=== PATIENT | male | born 1960 | race Caucasian/White ===

== ENCOUNTER 2017-06-01 11:44 | Emergency (ER) | payer OTHER | END 2017-06-01 14:41 | disposition home or self-care (01) | LOC: E/R 11:44 | DX: B35.1 Tinea unguium (principal) | CPT/HCPCS: 99284 ==

== ENCOUNTER 2017-06-19 11:36 | Emergency (ER) | payer OTHER ==
[2017-06-19 17:28] LABS: ADD MAN DIFF? NO
[2017-06-19 17:31] LABS: WHITE BLOOD COUNT 8.1 10^3/ul (4.8-10.8)
[2017-06-19 17:31] LABS: BASOPHILS % 0.5 % (0.0-2.0); EOSINOPHILS # 0.4 10^3/ul (0.0-0.5); EOSINOPHILS % 4.6 % (0.0-7.0); HEMOGLOBIN 14.6 g/dl (14.0-18.0); LYMPHOCYTES % 24.4 % (15.0-51.0); MEAN CORPUSCULAR HEMOGLOBIN 30.2 pg (29.0-33.0); MEAN CORPUSCULAR HGB CONC 34.8 g/dl (32.0-37.0); MEAN PLATELET VOLUME 8.8 fl (7.4-10.4); MONOCYTE # 0.7 10^3/ul (0.3-0.9); NEUTROPHILS % 61.3 % (39.0-77.0); PLATELET COUNT 295 10^3/UL (140-415); RED BLOOD COUNT 4.83 10^6/ul (4.70-6.10); RED CELL DISTRIBUTION WIDTH 12.4 % (11.5-14.5)
[2017-06-19 17:33] LABS: ADD UMIC YES; UR ASCORBIC ACID NEGATIVE (NEGATIVE); UR BILIRUBIN (Dip) NEGATIVE (NEGATIVE); UR BLOOD (Dip) 1+ mg/dL (NEGATIVE); UR CLARITY CLEAR (CLEAR); UR COLOR COLORLESS (YELLOW); UR GLUCOSE (Dip) NEGATIVE (NEGATIVE); UR KETONES (Dip) NEGATIVE (NEGATIVE); UR LEUKOCYTE ESTERASE (Dip) NEGATIVE Leu/ul (NEGATIVE); UR NITRITE (Dip) NEGATIVE (NEGATIVE); UR RBC 0 /HPF (0-5); UR SPECIFIC GRAVITY (Dip) 1.001 (1.003-1.030); UR TOTAL PROTEIN (Dip) NEGATIVE (NEGATIVE); UR UROBILINOGEN (Dip) NEGATIVE (NEGATIVE); UR WBC 0 /HPF (0-5)
[2017-06-19] MEDS: SOD CHLORIDE 0.9% 1,000 ML IV (17:37)
[2017-06-19] MEDS: morphine 4 MG/ML VIAL IV (17:37)
[2017-06-19 17:50] LABS: ALANINE AMINOTRANSFERASE 43 IU/L (13-69); ALBUMIN 4.3 g/dl (3.3-4.9); ALBUMIN/GLOBULIN RATIO 1.48; ALKALINE PHOSPHATASE 78 IU/L (42-121); ANION GAP 10 (8-16); ASPARTATE AMINO TRANSFERASE 30 IU/L (15-46); BLOOD UREA NITROGEN 9 mg/dl (7-20); CALCIUM 9.1 mg/dl (8.4-10.2); CARBON DIOXIDE 27 mmol/L (21-31); CHLORIDE 100 mmol/L (97-110); CREATININE 0.85 mg/dl (0.61-1.24); GLUCOSE 110 mg/dl (70-220); LIPASE 68 U/L (23-300); POTASSIUM 4.2 mmol/L (3.5-5.1); SODIUM 133 mmol/L (135-144); TOTAL PROTEIN 7.2 g/dl (6.1-8.1)
[2017-06-19] MEDS: ONDANSETRON 4 MG INJ IV (20:00)
[2017-06-19] MEDS: KETOROLAC 30 MG INJ IV (20:00)
== END 2017-06-19 21:05 | disposition home or self-care (01) ==
LOC: E/R 11:36
DX: R10.84 Generalized abdominal pain (principal); R40.2142 Coma scale, eyes open, spontaneous, at arrival to emergency department; R40.2252 Coma scale, best verbal response, oriented, at arrival to emergency department; R40.2362 Coma scale, best motor response, obeys commands, at arrival to emergency department
CPT/HCPCS: 74176; 80053; 81001; 83690; 85025; 96374; 96375; 99285-25

== ENCOUNTER 2017-07-04 10:10 | Emergency (ER) | payer OTHER ==
[2017-07-04] MEDS: IBUPROFEN 600 MG TAB PO (12:17)
== END 2017-07-04 12:36 | disposition home or self-care (01) ==
LOC: FTE 10:10
DX: M79.671 Pain in right foot (principal)
CPT/HCPCS: 73630; 99283-25

== ENCOUNTER 2017-07-13 10:56 | Emergency (ER) | payer OTHER | END 2017-07-13 12:57 | disposition home or self-care (01) | LOC: FTE 10:56 | DX: B35.6 Tinea cruris (principal); F17.210 Nicotine dependence, cigarettes, uncomplicated | CPT/HCPCS: 99283 ==

== ENCOUNTER 2017-07-22 11:16 | Emergency (ER) | payer OTHER ==
[2017-07-22] MEDS: HYDROCODONE/APAP (5/325) TAB PO (11:42)
[2017-07-22 11:50] LABS: ADD MAN DIFF? NO
[2017-07-22 11:51] LABS: BASOPHILS % 0.3 % (0.0-2.0); EOSINOPHILS # 0.1 10^3/ul (0.0-0.5); EOSINOPHILS % 0.9 % (0.0-7.0); HEMATOCRIT 42.1 % (42.0-52.0); HEMOGLOBIN 15.4 g/dl (14.0-18.0); LYMPHOCYTES # 1.2 10^3/ul (0.8-2.9); MEAN CORPUSCULAR HEMOGLOBIN 30.6 pg (29.0-33.0); MEAN CORPUSCULAR HGB CONC 36.6 g/dl (32.0-37.0); MEAN CORPUSCULAR VOLUME 83.7 fl (82.0-101.0); MEAN PLATELET VOLUME 8.6 fl (7.4-10.4); MONOCYTE # 0.8 10^3/ul (0.3-0.9); MONOCYTES % 6.8 % (0.0-11.0); NEUTROPHIL # 9.4 10^3/ul (1.6-7.5); NEUTROPHILS % 81.7 % (39.0-77.0); PLATELET COUNT 298 10^3/UL (140-415); RED BLOOD COUNT 5.03 10^6/ul (4.70-6.10); RED CELL DISTRIBUTION WIDTH 12.1 % (11.5-14.5)
[2017-07-22 11:51] LABS: WHITE BLOOD COUNT 11.5 10^3/ul (4.8-10.8)
[2017-07-22 12:20] LABS: ALANINE AMINOTRANSFERASE 33 IU/L (13-69); ALBUMIN 4.3 g/dl (3.3-4.9); ALBUMIN/GLOBULIN RATIO 1.53; ALKALINE PHOSPHATASE 64 IU/L (42-121); ANION GAP 17 (8-16); ASPARTATE AMINO TRANSFERASE 25 IU/L (15-46); BILIRUBIN,INDIRECT 0.2 mg/dl (0-1.1); BILIRUBIN,TOTAL 0.2 mg/dl (0.2-1.3); BLOOD UREA NITROGEN 13 mg/dl (7-20); CARBON DIOXIDE 22 mmol/L (21-31); CHLORIDE 95 mmol/L (97-110); CREATININE 0.86 mg/dl (0.61-1.24); GLUCOSE 103 mg/dl (70-220); POTASSIUM 4.4 mmol/L (3.5-5.1); SODIUM 130 mmol/L (135-144); TOTAL PROTEIN 7.1 g/dl (6.1-8.1)
[2017-07-22 12:27] LABS: B-TYPE NATRIURETIC PEPTIDE 51 PG/ML (0-125)
== END 2017-07-22 13:03 | disposition home or self-care (01) ==
LOC: FTE 11:16
DX: M79.605 Pain in left leg (principal); F17.210 Nicotine dependence, cigarettes, uncomplicated; R60.0 Localized edema
CPT/HCPCS: 71045; 80053; 83880; 85025; 93971; 99285-25

== ENCOUNTER 2017-07-29 03:50 | Inpatient (IN) | payer OTHER ==
[2017-07-29] MEDS ORDERED: ONDANSETRON 4 MG INJ IV (08:30)
[2017-07-29] MEDS ORDERED: ACETAMINOPHEN 325 MG TAB PO (08:30)
[2017-07-29] MEDS ORDERED: DOCUSATE SODIUM 100 MG CAP PO (08:30)
[2017-07-29] MEDS ORDERED: BISACODYL (EC) 5 MG TAB PO (08:30)
[2017-07-29] MEDS ORDERED: NACL 0.9% 3 ML SYG IV (08:30)
[2017-07-29] MEDS: SOD CHLORIDE 0.9% 1,000 ML IV ×2 (10:35→20:33)
[2017-07-29 11:23] LABS: ADD UMIC YES; UR ASCORBIC ACID NEGATIVE (NEGATIVE); UR BILIRUBIN (Dip) NEGATIVE (NEGATIVE); UR BLOOD (Dip) 1+ mg/dL (NEGATIVE); UR CLARITY CLEAR (CLEAR); UR COLOR COLORLESS (YELLOW); UR GLUCOSE (Dip) NEGATIVE (NEGATIVE); UR KETONES (Dip) NEGATIVE (NEGATIVE); UR LEUKOCYTE ESTERASE (Dip) NEGATIVE Leu/ul (NEGATIVE); UR NITRITE (Dip) NEGATIVE (NEGATIVE); UR RBC 0 /HPF (0-5); UR SPECIFIC GRAVITY (Dip) 1.002 (1.003-1.030); UR TOTAL PROTEIN (Dip) NEGATIVE (NEGATIVE); UR UROBILINOGEN (Dip) NEGATIVE (NEGATIVE); UR WBC 0 /HPF (0-5)
[2017-07-29 11:37] LABS: ADD MAN DIFF? NO
[2017-07-29 11:38] LABS: CREATININE,URINE RANDOM 14.19 mg/dl (20-370)
[2017-07-29 11:41] LABS: BASOPHILS % 0.3 % (0.0-2.0); EOSINOPHILS # 0.2 10^3/ul (0.0-0.5); EOSINOPHILS % 2.7 % (0.0-7.0); HEMATOCRIT 41.9 % (42.0-52.0); HEMOGLOBIN 14.9 g/dl (14.0-18.0); LYMPHOCYTES # 1.1 10^3/ul (0.8-2.9); LYMPHOCYTES % 17.2 % (15.0-51.0); MEAN CORPUSCULAR HEMOGLOBIN 30.2 pg (29.0-33.0); MEAN CORPUSCULAR HGB CONC 35.6 g/dl (32.0-37.0); MEAN CORPUSCULAR VOLUME 84.8 fl (82.0-101.0); MEAN PLATELET VOLUME 8.9 fl (7.4-10.4); MONOCYTE # 0.7 10^3/ul (0.3-0.9); MONOCYTES % 11.4 % (0.0-11.0); NEUTROPHIL # 4.4 10^3/ul (1.6-7.5); NEUTROPHILS % 68.1 % (39.0-77.0); PLATELET COUNT 315 10^3/UL (140-415); RED BLOOD COUNT 4.94 10^6/ul (4.70-6.10); RED CELL DISTRIBUTION WIDTH 12.7 % (11.5-14.5)
[2017-07-29 11:41] LABS: WHITE BLOOD COUNT 6.4 10^3/ul (4.8-10.8)
[2017-07-29 11:55] LABS: HEMOGLOBIN A1C 5.4 % (0-5.9)
[2017-07-29 12:03] LABS: ALANINE AMINOTRANSFERASE 31 IU/L (13-69); ALBUMIN 4.5 g/dl (3.3-4.9); ALKALINE PHOSPHATASE 56 IU/L (42-121); ANION GAP 16 (8-16); ASPARTATE AMINO TRANSFERASE 34 IU/L (15-46); BILIRUBIN,INDIRECT 0.4 mg/dl (0-1.1); BILIRUBIN,TOTAL 0.4 mg/dl (0.2-1.3); BLOOD UREA NITROGEN 7 mg/dl (7-20); CALCIUM 9.2 mg/dl (8.4-10.2); CARBON DIOXIDE 24 mmol/L (21-31); CHLORIDE 101 mmol/L (97-110); CREATININE 0.77 mg/dl (0.61-1.24); GLUCOSE 93 mg/dl (70-220); POTASSIUM 4.3 mmol/L (3.5-5.1); SODIUM 137 mmol/L (135-144); TOTAL PROTEIN 7.3 g/dl (6.1-8.1)
[2017-07-29 12:04] LABS: CHOLESTEROL 196 mg/dl (100-200); OSMOLALITY 271 mOsm/kg (280-295)
[2017-07-29 12:04] LABS: URIC ACID 3.5 mg/dl (3.1-7.9)
[2017-07-29 12:04] LABS: CHOL/HDL RATIO 4.7 RATIO; HDL CHOLESTEROL 41 mg/dl (28-71); LDL CHOLESTEROL,CALCULATED 130 mg/dl; TRIGLYCERIDES 123 mg/dl (0-149)
[2017-07-29 12:09] LABS: SODIUM,URINE RANDOM 28 mmol/L (30-90)
[2017-07-29 15:30] LABS: OSMOLALITY,URINE 104 mOsm/kg (250-1200)
[2017-07-29 16:11] LABS: OCCULT BLOOD STOOL NEGATIVE (NEGATIVE)
[2017-07-30 06:15] LABS: ADD MAN DIFF? NO
[2017-07-30 06:19] LABS: BASOPHILS % 0.5 % (0.0-2.0); EOSINOPHILS # 0.2 10^3/ul (0.0-0.5); EOSINOPHILS % 3.9 % (0.0-7.0); HEMATOCRIT 43.1 % (42.0-52.0); HEMOGLOBIN 15.4 g/dl (14.0-18.0); LYMPHOCYTES # 1.6 10^3/ul (0.8-2.9); LYMPHOCYTES % 27.8 % (15.0-51.0); MEAN CORPUSCULAR HEMOGLOBIN 30.2 pg (29.0-33.0); MEAN CORPUSCULAR HGB CONC 35.7 g/dl (32.0-37.0); MEAN CORPUSCULAR VOLUME 84.5 fl (82.0-101.0); MEAN PLATELET VOLUME 8.9 fl (7.4-10.4); MONOCYTE # 0.6 10^3/ul (0.3-0.9); MONOCYTES % 10.2 % (0.0-11.0); NEUTROPHIL # 3.3 10^3/ul (1.6-7.5); NEUTROPHILS % 57.2 % (39.0-77.0); PLATELET COUNT 308 10^3/UL (140-415); RED CELL DISTRIBUTION WIDTH 12.6 % (11.5-14.5)
[2017-07-30 06:19] LABS: WHITE BLOOD COUNT 5.7 10^3/ul (4.8-10.8)
[2017-07-30 06:44] LABS: ALANINE AMINOTRANSFERASE 36 IU/L (13-69); ALBUMIN 4.2 g/dl (3.3-4.9); ALBUMIN/GLOBULIN RATIO 1.31; ALKALINE PHOSPHATASE 58 IU/L (42-121); ANION GAP 16 (8-16); ASPARTATE AMINO TRANSFERASE 26 IU/L (15-46); BILIRUBIN,INDIRECT 0.4 mg/dl (0-1.1); BILIRUBIN,TOTAL 0.4 mg/dl (0.2-1.3); BLOOD UREA NITROGEN 8 mg/dl (7-20); CALCIUM 9.1 mg/dl (8.4-10.2); CARBON DIOXIDE 22 mmol/L (21-31); CHLORIDE 103 mmol/L (97-110); CREATININE 0.81 mg/dl (0.61-1.24); GLUCOSE 87 mg/dl (70-220); POTASSIUM 4.4 mmol/L (3.5-5.1); SODIUM 137 mmol/L (135-144); TOTAL PROTEIN 7.4 g/dl (6.1-8.1)
[2017-07-30 06:45] LABS: PHOSPHORUS 3.5 mg/dl (2.5-4.9)
[2017-07-30] MEDS: SOD CHLORIDE 0.9% 1,000 ML IV (09:03)
[2017-07-30 14:24] LABS: CREATININE, RANDOM URINE 14 mg/dL (20-370); MICROALBUMIN <0.2 mg/dL; MICROALBUMIN/CREATININE RATIO NOTE (<30)
[2017-07-31] MEDS ORDERED: INFLUENZA VIRUS VACCINE 0.5 ML (DISPENSING) IM* (09:00)
== END 2017-07-30 13:10 | disposition home or self-care (01) | DRG 392 ==
LOC: MS2 03:50
PROVIDERS: Family Medicine
DX: A08.4 Viral intestinal infection, unspecified (principal); K92.0 Hematemesis; E87.1 Hypo-osmolality and hyponatremia; F17.210 Nicotine dependence, cigarettes, uncomplicated
CPT/HCPCS: 71046; 74018; 80053; 80061; 81001; 81003; 82043; 82270; 82533; 83036; 83735; 83930; 83935; 84100; 84155; 84300; 84443; 84560; 85025; 86674; 87045; 87075; 87177; 87205

== ENCOUNTER 2017-08-15 11:27 | Emergency (ER) | payer OTHER ==
[2017-08-15 12:38] LABS: ADD UMIC YES; UR ASCORBIC ACID NEGATIVE (NEGATIVE); UR BILIRUBIN (Dip) NEGATIVE (NEGATIVE); UR BLOOD (Dip) 1+ mg/dL (NEGATIVE); UR CLARITY CLEAR (CLEAR); UR COLOR COLORLESS (YELLOW); UR GLUCOSE (Dip) NEGATIVE (NEGATIVE); UR KETONES (Dip) NEGATIVE (NEGATIVE); UR LEUKOCYTE ESTERASE (Dip) NEGATIVE Leu/ul (NEGATIVE); UR NITRITE (Dip) NEGATIVE (NEGATIVE); UR RBC 0 /HPF (0-5); UR SPECIFIC GRAVITY (Dip) 1.001 (1.003-1.030); UR TOTAL PROTEIN (Dip) NEGATIVE (NEGATIVE); UR UROBILINOGEN (Dip) NEGATIVE (NEGATIVE); UR WBC 0 /HPF (0-5)
[2017-08-15] MEDS: SOD CHLORIDE 0.9% 1,000 ML IV ×2 (12:45→14:19)
[2017-08-15] MEDS: ONDANSETRON 4 MG INJ IV (12:45)
[2017-08-15] MEDS: LORAZEPAM 2 MG INJ IV (12:45)
[2017-08-15] MEDS: morphine 4 MG/ML VIAL IV (12:46)
[2017-08-15 13:03] LABS: ADD MAN DIFF? NO
[2017-08-15 13:06] LABS: BASOPHILS % 0.2 % (0.0-2.0); EOSINOPHILS # 0.1 10^3/ul (0.0-0.5); EOSINOPHILS % 1.2 % (0.0-7.0); HEMATOCRIT 41.1 % (42.0-52.0); HEMOGLOBIN 14.6 g/dl (14.0-18.0); LYMPHOCYTES % 10.9 % (15.0-51.0); MEAN CORPUSCULAR HEMOGLOBIN 29.6 pg (29.0-33.0); MEAN CORPUSCULAR HGB CONC 35.5 g/dl (32.0-37.0); MEAN CORPUSCULAR VOLUME 83.4 fl (82.0-101.0); MEAN PLATELET VOLUME 8.8 fl (7.4-10.4); MONOCYTE # 0.7 10^3/ul (0.3-0.9); MONOCYTES % 7.4 % (0.0-11.0); NEUTROPHIL # 7.2 10^3/ul (1.6-7.5); NEUTROPHILS % 80.1 % (39.0-77.0); PLATELET COUNT 297 10^3/UL (140-415); RED BLOOD COUNT 4.93 10^6/ul (4.70-6.10); RED CELL DISTRIBUTION WIDTH 12.5 % (11.5-14.5)
[2017-08-15 13:25] LABS: LACTIC ACID 0.9 mmol/L (0.5-2.0)
[2017-08-15 13:25] LABS: INR 0.99; PROTIME 13.2 Sec (11.9-14.9)
[2017-08-15 13:26] LABS: PARTIAL THROMBOPLASTIN TIME 29.9 Sec (25.0-35.0)
[2017-08-15 13:27] LABS: ALANINE AMINOTRANSFERASE 31 IU/L (13-69); ALBUMIN 4.4 g/dl (3.3-4.9); ALBUMIN/GLOBULIN RATIO 1.46; ALKALINE PHOSPHATASE 55 IU/L (42-121); AMYLASE 63 U/L (11-123); ANION GAP 17 (8-16); ASPARTATE AMINO TRANSFERASE 22 IU/L (15-46); BILIRUBIN,INDIRECT 0.6 mg/dl (0-1.1); BILIRUBIN,TOTAL 0.6 mg/dl (0.2-1.3); BLOOD UREA NITROGEN 10 mg/dl (7-20); CALCIUM 9.2 mg/dl (8.4-10.2); CARBON DIOXIDE 22 mmol/L (21-31); CHLORIDE 93 mmol/L (97-110); CREATININE 0.78 mg/dl (0.61-1.24); GLUCOSE 105 mg/dl (70-220); LIPASE 57 U/L (23-300); POTASSIUM 4.2 mmol/L (3.5-5.1); SODIUM 128 mmol/L (135-144); TOTAL PROTEIN 7.4 g/dl (6.1-8.1)
[2017-08-15 13:38] LABS: TROPONIN-I < 0.012 ng/ml (0.00-0.12)
== END 2017-08-15 15:37 | disposition home or self-care (01) ==
LOC: E/R 11:27
DX: E87.1 Hypo-osmolality and hyponatremia (principal); F41.9 Anxiety disorder, unspecified; R11.10 Vomiting, unspecified; R19.7 Diarrhea, unspecified
CPT/HCPCS: 36415; 80053; 81001; 82150; 83605; 83690; 84484; 85025; 85610; 85730; 93005; 96374; 96375; 99284-25

== ENCOUNTER 2017-09-07 12:26 | Emergency (ER) | payer OTHER ==
[2017-09-07] MEDS: HYDROCODONE/APAP (5/325) TAB PO (13:40)
== END 2017-09-07 13:43 | disposition home or self-care (01) ==
LOC: FTE 12:26
DX: M54.31 Sciatica, right side (principal)
CPT/HCPCS: 99284

== ENCOUNTER 2017-09-17 12:00 | Emergency (ER) | payer OTHER ==
[2017-09-17 16:44] LABS: ADD MAN DIFF? NO
[2017-09-17 16:46] LABS: WHITE BLOOD COUNT 8.2 10^3/ul (4.8-10.8)
[2017-09-17 16:46] LABS: BASOPHILS % 0.2 % (0.0-2.0); EOSINOPHILS # 0.2 10^3/ul (0.0-0.5); EOSINOPHILS % 2.6 % (0.0-7.0); HEMATOCRIT 42.3 % (42.0-52.0); HEMOGLOBIN 14.7 g/dl (14.0-18.0); LYMPHOCYTES # 1.9 10^3/ul (0.8-2.9); LYMPHOCYTES % 22.6 % (15.0-51.0); MEAN CORPUSCULAR HEMOGLOBIN 30.2 pg (29.0-33.0); MEAN CORPUSCULAR HGB CONC 34.8 g/dl (32.0-37.0); MEAN CORPUSCULAR VOLUME 86.9 fl (82.0-101.0); MEAN PLATELET VOLUME 8.6 fl (7.4-10.4); MONOCYTE # 0.8 10^3/ul (0.3-0.9); MONOCYTES % 9.2 % (0.0-11.0); NEUTROPHIL # 5.3 10^3/ul (1.6-7.5); NEUTROPHILS % 64.8 % (39.0-77.0); PLATELET COUNT 290 10^3/UL (140-415); RED BLOOD COUNT 4.87 10^6/ul (4.70-6.10); RED CELL DISTRIBUTION WIDTH 12.5 % (11.5-14.5)
[2017-09-17 16:48] LABS: ADD UMIC YES; UR ASCORBIC ACID NEGATIVE (NEGATIVE); UR BILIRUBIN (Dip) NEGATIVE (NEGATIVE); UR BLOOD (Dip) 1+ mg/dL (NEGATIVE); UR CLARITY CLEAR (CLEAR); UR COLOR COLORLESS (YELLOW); UR GLUCOSE (Dip) NEGATIVE (NEGATIVE); UR KETONES (Dip) NEGATIVE (NEGATIVE); UR LEUKOCYTE ESTERASE (Dip) NEGATIVE Leu/ul (NEGATIVE); UR NITRITE (Dip) NEGATIVE (NEGATIVE); UR RBC 0 /HPF (0-5); UR SPECIFIC GRAVITY (Dip) 1.001 (1.003-1.030); UR TOTAL PROTEIN (Dip) NEGATIVE (NEGATIVE); UR UROBILINOGEN (Dip) NEGATIVE (NEGATIVE); UR WBC 0 /HPF (0-5)
[2017-09-17 17:08] LABS: ALANINE AMINOTRANSFERASE 23 IU/L (13-69); ALBUMIN 4.2 g/dl (3.3-4.9); ALBUMIN/GLOBULIN RATIO 1.35; ALKALINE PHOSPHATASE 80 IU/L (42-121); ANION GAP 15 (8-16); ASPARTATE AMINO TRANSFERASE 22 IU/L (15-46); BILIRUBIN,INDIRECT 0.2 mg/dl (0-1.1); BILIRUBIN,TOTAL 0.2 mg/dl (0.2-1.3); BLOOD UREA NITROGEN 8 mg/dl (7-20); CALCIUM 9.3 mg/dl (8.4-10.2); CARBON DIOXIDE 25 mmol/L (21-31); CHLORIDE 100 mmol/L (97-110); CREATININE 0.78 mg/dl (0.61-1.24); GLUCOSE 98 mg/dl (70-220); LIPASE 49 U/L (23-300); POTASSIUM 4.2 mmol/L (3.5-5.1); SODIUM 136 mmol/L (135-144); TOTAL PROTEIN 7.3 g/dl (6.1-8.1)
[2017-09-17 17:19] LABS: TROPONIN-I < 0.012 ng/ml (0.00-0.12)
== END 2017-09-17 18:05 | disposition home or self-care (01) ==
LOC: FTE 12:00
DX: R53.83 Other fatigue (principal)
CPT/HCPCS: 36415; 80053; 81001; 83690; 84484; 85025; 93005; 99284-25

== ENCOUNTER 2017-09-29 12:11 | Emergency (ER) | payer OTHER | END 2017-09-29 12:42 | disposition home or self-care (01) | LOC: E/R 12:11 | DX: H61.21 Impacted cerumen, right ear (principal) | CPT/HCPCS: 99283 ==

== ENCOUNTER 2017-10-20 12:01 | Emergency (ER) | payer OTHER | END 2017-10-20 12:50 | disposition home or self-care (01) | LOC: FTE 12:01 | DX: H61.21 Impacted cerumen, right ear (principal); Z87.891 Personal history of nicotine dependence | CPT/HCPCS: 69209; 99283-25 ==

== ENCOUNTER 2018-02-26 11:31 | Emergency (ER) | payer OTHER | END 2018-02-26 13:10 | disposition home or self-care (01) | LOC: FTE 11:31 | DX: B35.6 Tinea cruris (principal) | CPT/HCPCS: 99282 ==

== ENCOUNTER 2018-05-07 11:45 | Emergency (ER) | payer OTHER ==
[2018-05-07] MEDS: ACETAMINOPHEN 500 MG TAB PO (12:36)
[2018-05-07] MEDS: IBUPROFEN 600 MG TAB PO (12:36)
== END 2018-05-07 12:53 | disposition home or self-care (01) ==
LOC: FTE 11:45
DX: S89.91XA Unspecified injury of right lower leg, initial encounter (principal); X58.XXXA Exposure to other specified factors, initial encounter; Y92.322 Soccer field as the place of occurrence of the external cause; Z87.891 Personal history of nicotine dependence
CPT/HCPCS: 99283

== ENCOUNTER 2018-06-07 11:20 | Emergency (ER) | payer OTHER ==
[2018-06-07] MEDS: KETOROLAC 30 MG INJ IM (13:08)
== END 2018-06-07 13:34 | disposition home or self-care (01) ==
LOC: FTE 11:20
DX: M25.562 Pain in left knee (principal); F17.210 Nicotine dependence, cigarettes, uncomplicated
CPT/HCPCS: 73562; 96372; 99284-25

== ENCOUNTER 2018-09-16 12:50 | Emergency (ER) | payer OTHER | END 2018-09-16 14:04 | disposition home or self-care (01) | LOC: FTE 14:04 | DX: H92.01 Otalgia, right ear (principal); Z87.891 Personal history of nicotine dependence | CPT/HCPCS: 99282 ==